=== PATIENT | male | born 1970 | race Caucasian/White ===

== ENCOUNTER 2018-01-21 09:12 | Day surgery (SDC) | payer OTHER ==
[2017-12-18 11:53] VITALS: BMI 27.2
[2018-01-21] MEDS ORDERED: PROPOFOL 20 ML ONE ×2 (09:15)
[2018-01-21] MEDS ORDERED: LIDOCAINE HCL/PF 2% SDV 5ML VIAL ONE (09:16)
[2018-01-21 09:36] VITALS: TEMP 98
[2018-01-21 11:15] VITALS: BP 119/87; PULSE 73
--- NOTE | 2018-01-23 12:10 | PATH ---
Surgical Pathology Report Patient Name: NELL HUA [facility]. Rec. #: [id number] /Age/Gender: 1970 (Age: 47) / M Account: [id number] [facility] Taken: 01/21/2018 Received: 01/21/2018 Reported: 01/23/2018 Physicians: Elsa Muñoz M.D. Specimen(s) Received A: BX DUODENUM B: BX ANTRUM C: BX OF FUNDUS D: GE JUNCTION Clinical History GI bleed Postoperative diagnosis: Rule out celiac disease, gastric ulcer, gastritis, fundal erosion, rule out Hansen's esophagus Final Diagnosis A. DUODENUM, BIOPSY: DUODENAL MUCOSA WITH NO PATHOLOGIC FINDINGS. Note: Features suggestive of celiac disease are not identified in this biopsy. B. ANTRUM, BIOPSY: MODERATE CHRONIC ACTIVE GASTRITIS. IMMUNOSTAIN SHOWS NUMEROUS H. PYLORI ORGANISMS. C. FUNDUS, BIOPSY: MILD CHRONIC GASTRITIS. IMMUNOSTAIN SHOWS A MODERATE NUMBER OF H. PYLORI ORGANISMS. D. GE JUNCTION, BIOPSY: ESOPHAGEAL (SQUAMOUS) MUCOSA SHOWING BASAL CELL HYPERPLASIA AND RARE INTRAEPITHELIAL EOSINOPHILS, CONSISTENT WITH REFLUX ESOPHAGITIS. COLUMNAR (GASTRIC CARDIA-TYPE) MUCOSA SHOWING MODERATE CHRONIC ACTIVE INFLAMMATION AND NUMEROUS H PYLORI ORGANISMS. NEGATIVE FOR INTESTINAL METAPLASIA. Electronically Signed Nohemi Roberts M.D. Gross Description A. Received in formalin, labeled "duodenum" are 2 solis, irregular portions of soft tissue measuring 0.2 and 0.4 cm. in greatest dimension. The specimens are submitted in toto in one cassette. B. Received in formalin, labeled "antrum" is a solis, irregular portion of soft tissue measuring 0.3 cm. in greatest dimension. The specimen is submitted in toto in one cassette. C. Received in formalin, labeled "fundus" is a solis, irregular portion of soft tissue measuring 0.3 cm. in greatest dimension. The specimen is submitted in toto in one cassette. D. Received in formalin, labeled "GE junction" are 3 solis, irregular portions of soft tissue ranging from 0.2-0.5 cm. in greatest dimension. The specimens are submitted in toto in one cassette. 01/22/2018 saudi01/22/2018
== END 2018-01-21 11:10 | disposition home or self-care (01) ==
LOC: FASU-ENDO 09:12
PROVIDERS: ATTEND Internal Medicine Gastroenterology
PROC: 0DB48ZX Excision of Esophagogastric Junction, Via Natural or Artificial Opening Endoscopic, Diagnostic (ICD-10-PCS; 2018-01-21)
PROC: 0DB98ZX Excision of Duodenum, Via Natural or Artificial Opening Endoscopic, Diagnostic (ICD-10-PCS; principal; 2018-01-21 10:14)
PROC: 0DB68ZX Excision of Stomach, Via Natural or Artificial Opening Endoscopic, Diagnostic (ICD-10-PCS; 2018-01-21 10:14)
DX: K29.60 Other gastritis without bleeding (principal); B96.81 Helicobacter pylori [H. pylori] as the cause of diseases classified elsewhere; K21.0 Gastro-esophageal reflux disease with esophagitis; R10.9 Unspecified abdominal pain; Q43.8 Other specified congenital malformations of intestine
CPT/HCPCS: 88305-TC; 88342-TC